=== PATIENT | male | born 1955 | race Caucasian/White ===

== ENCOUNTER → 2016-06-07 | Outpatient (CLI) | payer SELFPAY ==
[2005-09-18 09:10] VITALS: TEMP 96.9
[2016-06-07 08:04] LABS: URIC ACID 6.8 mg/dL (3.5-8.5)
== END ==
LOC: COL.LAB 07:35
PROVIDERS: Internal Medicine
DX: E78.4 Other hyperlipidemia (principal); M10.9 Gout, unspecified

== ENCOUNTER 2019-05-07 08:13 | Day surgery (SDC) | payer BC ==
[~2019-05-07] VITALS: Ht 188 cm; Wt 110.7 kg
[2019-05-07 08:32] VITALS: BP 146/84; PULSE 69; TEMP 97.8
[2019-05-07 09:50] VITALS: BP 123/74; PULSE 65; TEMP 98.1
[2019-05-07 10:00] VITALS: BP 110/56; PULSE 70
--- NOTE | 2019-05-07 10:04 | NUR ---
Pt resting in chair comfortably and was able to drink juice and eat pudding without c/o nausea. Pt is awake, alert, and oriented. He c/o of some hiccups post procedure, however, he states that the pudding and grape juice seem to be helping. Call light within reach. Attempt made to contact [facility]. No answer but left VM indicating that pt will need a ride home around 1030.
[2019-05-07 10:15] VITALS: BP 122/78; PULSE 64
--- NOTE | 2019-05-07 10:19 | NUR ---
Pt states that his hiccups went away after eating and drinking. He states that he feels ready to go home. Pt contacted ride home, and she is on her way. Call light within reach.
[2019-05-07 10:30] VITALS: BP 126/79; PULSE 64; TEMP 97.3
--- NOTE | 2019-05-07 10:30 | NUR ---
Pt meets criteria for discharge. Reviewed discharge information with patient including educational material. Pt had no further questions and expressed understanding. VSS and WNL upon discharge, and pt's ride at hospital.
--- NOTE | 2019-05-07 10:51 | NUR ---
PT RETURNED FROM ENDO PROCEDURE ROOM INTO BAY 7. PT ALERT, SLEEPY, ORIENTATED TO NAME AND PLACE. C/O HICCUPS. LUNGS CLEAR, HRR, BOWEL SOUNDS PRESENT. DENIES PAIN OR NAUSEA AT THIS TIME. IV PATENT, REQUESTS GRAPE JUICE AND VANILLA PUDDING. WILL CONT TO MONITOR PROGRESS.
== END 2019-05-07 10:40 | disposition home or self-care (01) ==
LOC: SDCO 08:13
DX: Z12.11 Encounter for screening for malignant neoplasm of colon (principal); K29.70 Gastritis, unspecified, without bleeding; K59.00 Constipation, unspecified; Z87.891 Personal history of nicotine dependence
CPT/HCPCS: J2250; J3010; J7030